=== PATIENT | female | born 1985 | race Caucasian/White ===

== ENCOUNTER 2023-02-12 16:10 | Outpatient (OUT) | payer OTHER, SELFPAY ==
--- NOTE | 2023-02-12 | XR_ITS ---
The [address] [address] Patient Name: SON HOLT MRN: [id number] date: 1985 Sex: F Assigned Patient Location: [facility] Current Patient Location: Accession/Order Number: [id number] Exam Date: 02/12/2023 16:25 Report Date: 02/13/2023 09:32 At the request of: SADIA [email or web address] Procedure: XR lumbar spine 2-3V EXAM: XR lumbar spine 2-3V HISTORY: Lumbar Strain COMPARISON: None. TECHNIQUE: 2 views FINDINGS: Satisfactory alignment. Maintained vertebral body heights. Multilevel endplate degenerative changes and disc disease of L4-S1. No acute fracture or significant subluxation. Nonobstructive bowel gas pattern. XR/XR lumbar spine 2-3V IMPRESSION: Mild degenerative change and disc disease of the lower lumbar spine as above. Electronically authenticated by: RYLEE KINGSLEY Date: 02/13/2023 09:32
== END 2023-02-12 16:11 | disposition home or self-care (01) ==
LOC: RAD 16:10
PROVIDERS: PCP Family Medicine; Visit Provider Family Medicine
DX: S39.012A Strain of muscle, fascia and tendon of lower back, initial encounter (principal); M54.16 Radiculopathy, lumbar region
CPT/HCPCS: 72100

== ENCOUNTER 2024-05-17 15:23 | Emergency (ER) | payer OTHER, SELFPAY ==
[2024-05-17 15:28] VITALS: BP 138/86; PULSE 113; TEMP 36.9; O2SAT 98; BMI 30.7
--- OUTSIDE RECORDS SUMMARY | 2024-05-17 15:28 | XMS_ITS | CCD ---
Author Organization [facility] Care Team Providers Care Information Security Director Name Role Phone DANY DEE Primary Care Unavailable RYLEE ESTRADA Consulting Unavailable MIGUEL ALLEN Admitting Unavailable MIGUEL ALLEN Attending Unavailable MIGUEL ALLEN Consulting Unavailable Geovany Jessica Consulting Unavailable Imelda Alonso Unavailable DANY DEE Referring Unavailable DANY DEE Primary Care Unavailable DANY DEE Referring Unavailable DANY DEE Primary Care Unavailable Dany Dee DO Primary Care Provider [phone] Allergies Allergy Classification Reported Allergen(s) Allergy Type Date of Onset Reaction(s) Facility (1 source) Sucralfate Drug Allergy Gastrointestinal Upset [facility] Medications Current Medications Medication Drug Class(es) Dates Sig (Normalized) Sig (Original) ciprofloxacin 3 mg/ml ophthalmic solution (1 source) Quinolone Antimicrobial Start: 05-11-2022 Ciprofloxacin HCl 0.3 % 1-2 gtts Ophthalmic every 4 hours for 5 days Apr, Active cyclobenzaprine hydrochloride 10 mg oral tablet (1 source) Muscle Relaxant Start: 02-12-2023 take 1 tablet by mouth three times daily as needed for muscle spasms cyclobenzaprine (FLEXERIL) 10 mg tablet Indications: Lumbar strain, initial encounter , Lumbar radiculopathy Take 1 tablet (10 mg total) by mouth 3 (three) times a day as needed for muscle spasms. 60 tablet 1 02/12/2023 Active dextromethorphan hydrobromide 15 mg / guaiFENesin 400 mg / pseudoephedrine hydrochloride 60 mg oral tablet (1 source) alpha-Adrenergic Agonist, Uncompetitive V-qpaarh-C-aspartat e Receptor Antagonist, Sigma-1 Agonist Start: 04-30-2024 take 4 tablets by mouth every twenty-four hours as needed Pseudoephedrine-Dm- Guaifenesin (Capmist Dm) 60-15-400 mg tablet Active 1 TAB PO EVERY 4-6 HOURS as needed for cold symptoms April 30, 2024 12:00am do not exceed 4 doses per 24 hrs fluticasone propionate 0.05 mg/actuat metered dose nasal spray (1 source) Corticosteroid Start: 04-30-2024 take 1 spray(s) nasal route twice daily Fluticasone Propionate (Flonase Allergy Relief) 50 mcg/actuation spray,suspension Active 1 SPRAY INTRANASAL Twice daily 16 April 30, 2024 12:00am administer 1 spray into each nostril ibuprofen 800 mg oral tablet (2 sources) Nonsteroidal Anti-inflammatory Drug Start: 02-12-2023 take 1 tablet by mouth every eight hours as needed for pain ibuprofen (MOTRIN) 800 mg tablet Take 1 tablet (800 mg total) by mouth every 8 (eight) hours as needed for pain. 90 tablet 1 02/12/2023 Active End: 02-12-2023 take 1 tablet by mouth every six hours as needed for pain ibuprofen (ADVIL,MOTRIN) 200 mg tablet Take 1 tablet (200 mg total) by mouth every 6 (six) hours as needed for pain. prn 0 02/12/2023 Discontinued (Dose adjustment) Completed/Discontinued Medications Medication Drug Class(es) Dates Sig (Normalized) Sig (Original) cefTRIAXone (1 source) Cephalosporin Antibacterial Start: 10-17-2018 ROCEPHIN per 250 mg Sep, 250 mg Problems Active Problems Problem Classification Problem Date Documented Da te Episodic/Chronic Abdominal pain (3 sources) Right upper quadrant pain; Translations: [RIGHT UPPER QUADRANT PAIN] Onset: 03-19-2020 Episodic Esophageal disorders (1 source) Gastro-esophageal reflux disease without esophagitis; Translations: [GERD WITHOUT ESOPHAGITIS] Onset: 03-22-2020 Chronic Inflammation; infection of eye (except that caused by tuberculosis or sexually transmitteddisease) (1 source) Unspecified acute conjunctivitis, left eye Episodic Spondylosis; intervertebral disc disorders; other back problems (2 sources) Radiculopathy, lumbar region; Translations: [Lumbar radiculopathy] Onset: 02-15-2023 02-12-2023 Episodic Sprains and strains (2 sources) Strain of muscle, fascia and tendon of lower back, initial encounter; Translations: [Low back strain] Onset: 02-15-2023 02-12-2023 Episodic Past or Other Problems Problem Classification Problem Date Documented Da te Episodic/Chronic Mood disorders (1 source) Mood disorders Onset: 02-12-2023 02-12-2023 Results Test Name Value Interpretation Reference Range Facil ity AMYLASEon 03-19-2020 Amylase [Catalytic activity/Vol] 44 U/L Normal 31-110 [facility] Comment on above: Performed By: #### H STROPN, LIPA, CMP, CHRIS #### [facility] [address] [place] [id number] Naz Ana CBC AUTO DIFFon 03-19-2020 Basophils (Bld) [#/Vol] 0.0 103/ul Normal 0.0-0.1 [facility] Comment on above: Performed By: #### C BC #### [facility] [address] [place], [place] [id number] Naz Ana Basophils/100 WBC (Bld) 0.2 % Normal 0.2-2.0 [facility] Comment on above: Performed By: #### C BC #### [facility] [address] [place] [address] Naz Ana Eosinophils (Bld) [#/Vol] 0.0 103/ul Normal 0.0-0.7 [facility] Comment on above: Performed By: #### C BC #### [facility] [address] [place], [place] [phone] Naz Ana Eosinophils/100 WBC (Bld) 0.3 % Critically low 0.9-7.0 [facility] Comment on above: Performed By: #### C BC #### [facility] [address] [place] [address] Naz Ana Erythrocyte distribution width (RBC) [Ratio] 14.1 % Normal 11.0-15.0 [facility] Comment on above: Performed By: #### C BC #### [facility] [address] [place] [address] Naz Ana Hematocrit (Bld) [Volume fraction] 42.4 % Normal 36.0-48.0 [facility] Comment on above: Performed By: #### C BC #### [facility] [address] [id number] Naz Ana Hemoglobin (Bld) [Mass/Vol] 13.7 g/dL Normal 12.0-16.0 [facility] Comment on above: Performed By: #### C BC #### [facility] [address] [id number] Naz Ana IG # 0.04 10e3/ul Critically high 0.00-0.03 [facility] Comment on above: Performed By: #### C BC #### [facility] [address] [place], [place] [phone] Naz Ana IG % 0.3 % Normal 0.0-0.5 [facility] Comment on above: Performed By: #### C BC #### [facility] [address] [place], [place] [phone] Naz Ana Lymphocytes (Bld) [#/Vol] 2.6 103/ul Normal 1.2-3.8 [facility] Comment on above: Performed By: #### C BC #### [facility] [address] [place], [place] [phone] Naz Ana Lymphocytes/100 WBC (Bld) 20.4 % Critically low 20.5-60.0 [facility] Comment on above: Performed By: #### C BC #### [facility] [address] [place], [place] [phone] Nazgeovany Parrishen MANUAL DIFF REQ NO Normal [facility] Comment on above: Performed By: #### C BC #### [facility] [address] [place], [place] [phone] Naz Ana MCH (RBC) [Entitic mass] 30.2 pg Normal 26.7-34.0 [facility] Comment on above: Performed By: #### C BC #### [facility] [address] [place], [place] [phone] Naz Ana MCHC (RBC) [Mass/Vol] 32.3 g/dL Normal 29.9-35.2 [facility] Comment on above: Performed By: #### C BC #### [facility] [address], [place] [address] Naz Ana MCV (RBC) [Entitic vol] 93.4 fL Normal 81.0-99.0 [facility] Comment on above: Performed By: #### C BC #### [facility] [address], [place] [address] Naz Ana Monocytes (Bld) [#/Vol] 0.6 103/ul Normal 0.3-0.8 [facility] Comment on above: Performed By: #### C BC #### [facility] [address], [place] [address] Naz Ana Monocytes/100 WBC (Bld) 5.0 % Normal 1.7-12.0 [facility] Comment on above: Performed By: #### C BC #### [facility] [address], [place] [address] Naz Ana Neutrophils (Bld) [#/Vol] 9.2 103/ul Critically high 1.4-6.5 [facility] Comment on above: Performed By: #### C BC #### [facility] [address] [place] [address] Naz Ana Neutrophils/100 WBC (Bld) 73.8 % Normal 43.0-75.0 [facility] Comment on above: Performed By: #### C BC #### [facility] [address] [place] [phone] Naz Ana Platelet mean volume (Bld) [Entitic vol] 10.6 fL Normal 9.5-13.5 [facility] Comment on above: Performed By: #### C BC #### [facility] [address], [place] [address] Naz Ana Platelets (Bld) [#/Vol] 323 103/ul Normal 150-450 [facility] Comment on above: Performed By: #### C BC #### [facility] [address], [place] [address] Naz Ana RBC (Bld) [#/Vol] 4.54 106/ul Normal 4.20-5.40 [facility] Comment on above: Performed By: #### C BC #### [facility] [address] [place] [address] Naz Perez WBC (Bld) [#/Vol] 12.5 103/ul Critically high 4.0-11.0 [facility] Comment on above: Performed By: #### C BC #### [facility] [address] [place] [address] Naz Ana CULTURE URINEon 03-19-2020 CULTURE URINE Culture Observations: Greater than 4 organisms present. None predominant. Culture Observations: Please resubmit clean catch midstream urine if clinically indicated. Normal [facility] Comment on above: Performed By: #### U RCX #### [facility] [address] [place] [address] Nazgeovany Perez ER URINE PROFILEon Bilirubin [Mass/Vol] Negative Normal NEGATIVE [facility] Comment on above: Performed By: #### JODIE HARRINGTON #### [facility] [address] [place] [address] Naz [place] BLOOD Negative Normal NEGATIVE [facility] Comment on above: Performed By: #### JODIE HARRINGTON #### [facility] [address] [place] [address] Nazgeovany Perez Clarity (U) CLEAR Normal CLEAR [facility] Comment on above: Performed By: #### JODIE HARRINGTON #### [facility] [address] [place] [address] Naz Ana Color (U) LT. YELLOW Normal YELLOW [facility] Comment on above: Performed By: #### CHRISTIAN HARRINGTONRO #### [facility] [address] [place], [place] [phone] Naz Ana ERUAHD A micrscopic examination will be performed if indicated. Normal [facility] Comment on above: Performed By: #### CHRISTIAN HARRINGTONRO #### [facility] [address] [place] [address] Naz Ana Glucose [Mass/Vol] Negative Normal NEGATIVE [facility] Comment on above: Performed By: #### Eleazar MIR UMINDRARO #### [facility] [address] [id number] Naz Ana Ketones Ql (U) 15 mg/dl Abnormal NEGATIVE [facility] Comment on above: Performed By: #### Eleazar MIR UMINDRARO #### [facility] [address] [id number] Naz Ana Nitrite Ql (U) Negative Normal NEGATIVE [facility] Comment on above: Performed By: #### Eleazar MIR UMICRO #### [facility] [address] [place] [address] Naz Ana pH (Bld) 6.0 Normal 5-9 [facility] Comment on above: Performed By: #### CHRISTIAN HARRINGTONRO #### [facility] [address] [place] [address] Naz Ana Protein (U) [Mass/Vol] Negative Normal NEGATIVE/ TRACE [facility] Comment on above: Performed By: #### CHRISTIAN HARRINGTONRO #### [facility] [address] [place] [address] Naz Ana SPEC GRAVITY >=1.030 Abnormal 1.005-<=1.025 [facility] Comment on above: Performed By: #### CHRISTIAN HARRINGTONRO #### [facility] [address] [place], [place] [phone] Naz Ana UR MICRO IND INDICATED Normal [facility] Comment on above: Performed By: #### Eleazar MIR UMICRO #### [facility] [address] [place] [address] Naz Ana Urobilinogen Qn (U) 0.2 EU/dl Normal 0.2 - 1.0 [facility] Comment on above: Performed By: #### Eleazar MIR UMINDRARO #### [facility] [address] [place], [place] [phone] Naz Ana WBC (Bld) [#/Vol] SMALL Abnormal NEGATIVE [facility] Comment on above: Performed By: #### JODIE HARRINGTON #### [facility] [address] [id number] Nazgeovany Perez LIPASEon 03-19-2020 Lipase [Catalytic activity/Vol] 122.0 U/L Normal 23.0-300.0 [facility] Comment on above: Performed By: #### H STROPN, LIPA, CMP, CHRIS #### [facility] [address] [id number] Naz Ana URon 03-19-2020 , QUAL Negative Normal NEGATIVE [facility] Comment on above: Performed By: #### P REGU #### [facility] [address] [id number] Nazgeovany Perez PROF 14(COMP METB)on 021 Albumin [Mass/Vol] 4.0 g/dL Normal 3.5-5.0 [facility] Comment on above: Performed By: #### H STROPN, LIPA, CMP, CHRIS #### [facility] [address] [address] Naz Ana Albumin/Globulin [Mass ratio] 1.0 {ratio} Normal [facility] Comment on above: Performed By: #### H STROPN, LIPA, CMP, CHRIS #### [facility] [address] [place] [address] Naz Ana ALP [Catalytic activity/Vol] 68 U/L Normal 38-126 [facility] Comment on above: Performed By: #### H STROPN, LIPA, CMP, CHRIS #### [facility] [address] [address] Naz Ana ALT [Catalytic activity/Vol] 21 U/L Normal 9-52 [facility] Comment on above: Performed By: #### H STROPN, LIPA, CMP, CHRIS #### [facility] [address] [address] Naz Ana Anion gap [Moles/Vol] 13.7 mmol/L Normal [facility] Comment on above: Performed By: #### H STROPN, LIPA, CMP, CHRIS #### [facility] [address] [address] Naz Ana AST [Catalytic activity/Vol] 9 U/L Critically low 14-36 [facility] Comment on above: Performed By: #### H STROPN, LIPA, CMP, CHRIS #### [facility] [address] [address] Naz Ana Bilirubin Ql (U) 0.4 mg/dL Normal 0.2-1.3 [facility] Comment on above: Performed By: #### H STROPN, LIPA, CMP, CHRIS #### [facility] [address] [place] [address] Naz Ana Calcium [Mass/Vol] 9.0 mg/dL Normal 8.4-10.2 [facility] Comment on above: Performed By: #### H STROPN, LIPA, CMP, CHRIS #### [facility] [address] [place] [address] Naz Ana Chloride [Moles/Vol] 103 mmol/L Normal 98-107 [facility] Comment on above: Performed By: #### H STROPN, LIPA, CMP, CHRIS #### [facility] [address] [place] [address] Naz Ana CO2 [Moles/Vol] 25.7 mmol/L Normal 22.0-30.0 [facility] Comment on above: Performed By: #### H STROPN, LIPA, CMP, CHRIS #### [facility] [address] [place] [address] Naz Ana Creatinine [Mass/Vol] 0.93 mg/dL Normal 0.52-1.04 [facility] Comment on above: Performed By: #### H STROPN, LIPA, CMP, CHRIS #### [facility] [address] [place] [address] Naz Ana EGFR-AF SWISS >60 Normal >=60 [facility] Comment on above: Performed By: #### H STROPN, LIPA, CMP, CHRIS #### [facility] [address] [address] Naz Ana EGFR-NON AF SWISS >60 Normal >=60 [facility] Comment on above: Performed By: #### H STROPN, LIPA, CMP, CHRIS #### [facility] [address] [address] Naz Ana Globulin (S) [Mass/Vol] 3.9 g/dL Normal [facility] Comment on above: Performed By: #### H STROPN, LIPA, CMP, CHRIS #### [facility] [address] [address] Naz Ana Glucose [Mass/Vol] 191 mg/dL Critically high 74-106 [facility] Comment on above: Performed By: #### H STROPN, LIPA, CMP, CHRIS #### [facility] [address] [address] Naz Ana Potassium [Moles/Vol] 3.4 mmol/L Normal 3.4-5.0 [facility] Comment on above: Performed By: #### H STROPN, LIPA, CMP, CHRIS #### [facility] [address] [place] [address] Naz Ana Protein [Mass/Vol] 7.9 g/dL Normal 6.1-8.2 [facility] Comment on above: Performed By: #### H STROPN, LIPA, CMP, CHRIS #### [facility] [address] [place] [address] Naz Ana Sodium [Moles/Vol] 139 mmol/L Normal 137-145 [facility] Comment on above: Performed By: #### H STROPN, LIPA, CMP, CHRIS #### [facility] [address] [place] [address] Naz Ana Urea nitrogen [Mass/Vol] 12.0 mg/dL Normal 7.0-17.0 [facility] Comment on above: Performed By: #### H STROPN, LIPA, CMP, CHRIS #### [facility] [address] [place] [address] Naz Ana Urea nitrogen/Creatinine [Mass ratio] 12.9 mg/mg Normal [facility] Comment on above: Performed By: #### H STROPN, LIPA, CMP, CHRIS #### [facility] [address] [place] [address] Naz Ana TROPONIN, HIGH SENSITIVITYon 03-19-2020 HSTROP <4.0 Normal 4.0-35.5 [facility] Comment on above: Result Comment: CUT- OFF POINTS HAVE BEEN ESTABLISHED BASED ON THE FOURTH UNIVERSAL DEFINITIONS OF MYOCARDIAL INFARCTION. THE UPPER REFERENCE LIMIT (URL) OF TROPONIN, DEFINED THE 99TH PERCENTILE OF cTnI DISTRIBUTION IN A REFERENCE POPULATION, HAS BEEN CONFIRMED THE DECISION THRESHOLD FOR AK DIAGNOSIS. Performed By: #### H STROPN, LIPA, CMP, CHRIS #### [facility] [address] [place], [place] [phone] Naz Ana URINE MICROSCOPIC ONLYon Bacteria LM.HPF (Urine sed) [#/Area] TRACE Abnormal NONE SEEN The [facility] Comment on above: Performed By: #### CHRISTIAN HARRINGTONRO #### [facility] [address] [place] [address] Naz Ana CAST NONE SEEN Normal NONE SEEN [facility] Comment on above: Performed By: #### Eleazar MIR UMICRO #### [facility] [address] [place] [address] Naz Ana Crystals LM Nom (Urine sed) NONE SEEN Normal NONE SEEN [facility] Comment on above: Performed By: #### Eleazar MIR UMICRO #### [facility] [address] [place] [address] Naz Ana CULTURE INDICATED Normal [facility] Comment on above: Performed By: #### CHRISTIAN HARRINGTONRO #### [facility] [address] [place] [address] Naz Ana Epithelial cells LM.HPF (Urine sed) [#/Area] FEW Abnormal NONE SEEN /RARE [facility] Comment on above: Performed By: #### CHRISTIAN HARRINGTONRO #### [facility] [address] [place] [address] Naz Ana MUCOUS SMALL Abnormal NONE SEEN [facility] Comment on above: Performed By: #### CHRISTIAN HARRINGTONRO #### [facility] [address] [place] [address] Naz Perez RBC (U) [#/Vol] 2-5 Abnormal 0-2 [facility] Comment on above: Performed By: #### JODIE HARRINGTON #### [facility] [address], [place] [address] Naz Perez WBC (Bld) [#/Vol] 2-5 Abnormal NONE SEEN The [facility] Comment on above: Performed By: #### JODIE HARRINGTON #### [facility] [address], [place] [address] Naz Perez XR ABD FLAT UP_PA [place] 03-19 XR ABD FLAT UP_PA CH EXAM: XR ABD FLAT UP_PA CH HISTORY: The patient is a 34-year-old female with five-day history of right upper quadrant pain. COMPARISON: Chest radiograph from 02/19/2019. FINDINGS: The lungs are well-inflated and clear with no confluent airspace infiltrates, pleural effusions, or pneumothoraces. The heart and mediastinum are within normal limits. The trachea is midline. Air and fecal material are seen throughout the nondistended colon and rectum. There are no abnormally dilated loops of large or small bowel to suggest obstruction. No free air is seen. No abnormal calcifications are identified. IMPRESSION: 1. Nonobstructive bowel gas pattern. 2. The lungs are clear. Electronically authenticated by: GEOVANY JESSICA Date: 2020-03-19 19:27 Normal [facility] Vital Signs Date Time Vital Sign Value Performing Clinician Facility 04-30-2024 15:040 Body height 167.64 cm [facility] 04-30-2024 15:040 Body mass index (BMI) [Ratio] 35 kg/m2 [facility] 04-30-2024 15:040 Body temperature 97.5 [degF] [facility] 04-30-2024 15: Body weight 98.42 kg [facility] 04-30-2024 15:0400 Heart rate 84 /min [facility] 04-30-2024 15:040 Respiratory rate 14 /min [facility] 04-30-2024 15:29-0400 SaO2% (BldA) [Mass fraction] 98 % [facility] 02-12-2023 15:21-0500 Body height 167.6 cm Dany Furlong DO Work Phone: [employer] 02-12-2023 15:21-0500 Body mass index (BMI) [Ratio] 34.35 kg/m2 Dany Furlong DO Work Phone: [employer] 02-12-2023 15:21-0500 Body temperature 97.9 [degF] Dany Furlong DO Work Phone: [employer] 02-12-2023 15:21-0500 Body weight 96.53 kg Dany Furlong DO Work Phone: [employer] 02-12-2023 15:21-0500 Diastolic blood pressure 74 mm[Hg] [facility]long DO [facility] 02-12-2023 15:21-0500 Heart rate 100 /min Dany luma-idlong DO Work Phone: [employer] 02-12-2023 15:21-0500 SaO2% (BldA) [Mass fraction] 100 % Dany Furlong DO Work Phone: [employer] 02-12-2023 15:21-0500 Systolic blood pressure 132 mm[Hg] Dany Furlong DO Work Phone: [employer] 05-11-2022 10:20-0400 Body height 165.1 cm Imelda Alonso Other [employer] Other 05-11-2022 10:20-0400 Body mass index (BMI) [Ratio] 34.11 kg/m2 Imelda Alonso Other [employer] Other 05-11-2022 10:20-0400 Body temperature 98.9 [degF] Imelda Alonso Other [employer] Other 05-11-2022 10:20-0400 Body weight 92.99 kg Imelda Alonso Other [employer] Other 05-11-2022 10:20-0400 Respiratory rate 18 /min Imelda Alonso Other [employer] Other 05-11-2022 10:20-0400 SaO2% (BldA) [Mass fraction] 98 % Imelda Alonso Other [employer] Other Encounters Encounter Date Encounter Type Care Provider Facility Start: 04-30-2024 End: 04-30-2024 ambulatory [facility] Work Phone: Start: 04-30-2024 End: 04-30-2024 Patient encounter procedure [facility] Carlos Manuel Work Phone: Start: 03-21-2023 End: 04-19-2023 ambulatory [facility] Start: 02-15-2023 End: 03-21-2023 ambulatory [facility] Start: 02-12-2023 End: 02-12-2023 Office outpatient visit 15 minutes [facility] DO Work Phone: [facility] - [facility] Comment on above: Lumbar strain, initi al encounter (Primary Dx); Lumbar radiculopathy Start: 05-11-2022 End: 05-11-2022 ambulatory Imelda Alonso Other [employer] Other Start: 05-11-2022 Office outpatient vi sit 15 minutes Imelda Alonso [facility] Carlos Manuel Start: 03-19-2020 End: 03-19-2020 Patient encounter procedure DANY PRASHANTHCASTRO Facility: Procedures Date Procedure Procedure Detail Performing Clinician Start: 02-12-2023 Adult depression screening assessment Dany Furlong DO Work Phone: Plan of Treatment Date Care Activity Detail Author Start: 02-13-2024 Adult BMI Screening Adult BMI Screen ing [facility] Start: 02-13-2024 Depression Screening Depression Scre ening [facility] Start: 02-13-2024 Tobacco Screening Tobacco Screening [facility] Start: 02-12-2023 End: 02-13-2024 XR Lumbar spine 2 or 3 Views X-ray spine lumbar 2 or 3 views Imaging Routine Lumbar strain, initial encounter Lumbar radiculopathy Expected: 02/12/2023, Expires: 02/13/2024 [facility] Work Phone: Comment on above: Expected: 02/12/2023 , Expires: 02/13/2024 Start: 10-19-2022 Influenza vaccination Influenza Vacc ine [facility] Start: 2006 Screening for malign ant neoplasm of cervix Pap Smear [facility] Start: 2004 DTaP,Tdap and Td Vaccines (1 - Tdap) DTaP,Tdap and Td Vaccines (1 - Tdap) [facility] Start: 09-11-2003 Adult BMI Follow Up Plan Adult BMI Follow Up Plan [facility] Influenza virus A an d B RNA and SARS-CoV-2 (COVID-19) N gene panel - Respiratory specimen by RODNEY with probe detection [facility] Payers Date Payer Category Payer Medicaid [id number] 2023 Medicaid [id number] O [id number] 2023-Present [phone] [address] [place] [address] [id number] 1985 Unknown [id number] 1985 Unknown [id number] 1985 Unknown [id number] 1959 Unknown [id number] Private Health Insurance [facility] [employer] [id number] Social History Date Type Detail Facility Unknown if ever smoked [facility] Appear Here Other Start: 07-30-2018 End: 02-12-2023 Sex Assigned At [facility] [employer] Other Start: 02-12-2023 End: 04-30-2024 Tobacco smoking status NHIS Never smoked tobacco [facility] Start: 02-12-2023 Tobacco use and exposure Smokeless tobacco non-user [facility] Start: 02-12-2023 Alcohol intake Current drinke r of alcohol (finding) [facility] Start: 07-30-2018 End: 02-12-2023 History of Social function [facility] Adolescent depressio n screening assessment 0 [facility] Start: 02-12-2023 Alcohol Comment sometime [facility] Start: 1985 Sex Assigned At Not on file P [facility] Start: 04-30-2024 Sex Female (finding) [facility] Start: 1985 Sex Assigned At Female F [facility] History of Present illness Narrative 02-12-2023 Dany Dee, DO - 02/12/2023 3:20 PM EST Note Date & Type Note Facility 02-12-2023 History of Present illness Narrative Images from the original note were not included. Subjective Patient ID: Sharee Arredondo is a 37 y.o. female. Sharee presents for back and leg pain. It started in November after she tried lifting 40# case of water at a store. She bent at the waist and had a sudden onset of back pain. Pain went down both legs and did that for quite some time. Now it is pain going mainly down her left leg. She does not have any bowel or bladder symptoms. She has been using [id number] ibuprofen with mild relief. Pain does keep her awake at night. It is better than what it was but she is still having problems. Pain This is a new problem. The current episode started more than 1 month ago. The problem occurs constantly. The problem has been gradually improving. Pertinent negatives include no numbness or weakness. The symptoms are aggravated by bending, standing and walking. She has tried NSAIDs, ice and heat for the symptoms. The treatment provided mild relief. The following portions of the patient's history were reviewed and updated as appropriate: allergies, current medications, past family history, past medical history, past social history, past surgical history, problem list, and medication reconciliation was completed including current medication and post discharge medication. Review of Systems Constitutional: Negative. Gastrointestinal: Negative. Genitourinary: Negative. Musculoskeletal: Positive for back pain and gait problem. Neurological: Negative for weakness and numbness. Objective Physical Exam Constitutional: Appearance: She is obese. HENT: Head: Normocephalic. Cardiovascular: Pulses: Normal pulses. Pulmonary: Effort: Pulmonary effort is normal. Musculoskeletal: Lumbar back: No swelling, edema, deformity, signs of trauma, lacerations, spasms, tenderness or bony tenderness. Decreased range of motion. Positive left straight leg raise test. Negative right straight leg raise test. No scoliosis. Back: Comments: OMT done to the lumbar spine with 2 segmental subluxations corrected with HVLA technique. Muscle energy technique done to lumbosacral spine as well as soft tissue technique. Leg lengths were equal Neurological: Mental Status: She is alert. Cranial Nerves: Cranial nerves 2-12 are intact. Gait: Gait abnormal (antalgic). Deep Tendon Reflexes: Reflex Scores: Patellar reflexes are 2+ on the right side and 2+ on the left side. Achilles reflexes are 2+ on the right side and 0 on the left side. Psychiatric: Attention and Perception: Attention normal. Mood and Affect: Mood and affect normal. Speech: Speech normal. Behavior: Behavior normal. Behavior is cooperative. Thought Content: Thought content normal. Judgment: Judgment normal. Assessment/Plan Sharee was seen today for pain. Diagnoses and all orders for this visit: Lumbar strain, initial encounter - X-ray spine lumbar 2 or 3 views; Future - cyclobenzaprine (FLEXERIL) 10 mg tablet; Take 1 tablet (10 mg total) by mouth 3 (three) times a day as needed for muscle spasms. - Ambulatory referral to Physical Therapy ([facility]); Future Patient with lumbar strain but continues to have pain 2 months later. Will check an x-ray and start physical therapy. Also going to add Flexeril 10 mg 3 times a day as needed for muscle spasms. She is having trouble sleeping and this should help her sleep. Also give her prescription strength ibuprofen 800 mg every 8 hours as needed for pain. Lumbar radiculopathy - X-ray spine lumbar 2 or 3 views; Future - cyclobenzaprine (FLEXERIL) 10 mg tablet; Take 1 tablet (10 mg total) by mouth 3 (three) times a day as needed for muscle spasms. - Ambulatory referral to Physical Therapy (Non[facility]); Future May need to have an MRI done. Other orders - ibuprofen (MOTRIN) 800 mg tablet; Take 1 tablet (800 mg total) by mouth every 8 (eight) hours as needed for pain. documented in this encounter [facility] Evaluation note 05-11-2022 Note Date & Type Note Facility 05-11-2022 Evaluation note Encounter Date Diagnosis Assessment Notes Apr, Acute bacterial conjunctivitis of left eye (ICD-10 - H10.32) Discussed diagnosis with patient. Advised to use eye drops as prescribed, discussed proper administration. Contagious until after 24 hours on antibiotic eye drops. Advised good hand hygiene and infection control, wash linens and bedding, do not touch eye directly with eye drop bottle, wipe off bottle after every use, do not share eye drop bottles. Apply cool compress to eye several times a day, clean eye with warm, most cloth from inner to outer canthus. Avoid eye makeup until sx resolve, discard all eye makeup that was used at time of infection. Eye symptoms should improve in 2-3 days with treatment, if no improvement follow up with PCP or UC. Immediate eval if symptoms worsen, eye pain, vision changes, redness and swelling occur around the eye, headache, fever, N/V or any other concerning symptoms. Patient verbalizes understanding and is agreeable to treatment plan. [employer] Other Evaluation note Note Date & Type Note Facility Evaluation note Diagnosis Lumbar strain, initial encounter- Primary Lumbar radiculopathy Thoracic or lumbosacral neuritis or radiculitis, unspecified documented in this encounter [facility] Evaluation note Note Date & Type Note Facility Evaluation note No assessment information [facility] Work Phone: History general Narrative - Reported Note Date & Type Note Facility History general Narrative - Reported Type Surgical History wisdom teeth extract [employer] Other Instructions Note Date & Type Note Facility Instructions Not on filedocumented in this en counter [facility] Summary Purpose Family History Relationship Condition Age at Onset Recorded Date/T loyd father Family history of mental disorder Unknown Diabetes mellitus Unknown Hypertension Unknown Advance Directives Advance Directive Response Recorded Date/ Time Advance Directives No October 2:19pm Reason for Referral Specialty Diagnoses / Procedures Referred By Contac t Referred To Contact Rehabilitation Diagnoses Lumbar strain, initial encounter Lumbar radiculopathy Dany Dee DO [address], [facility] [place] [address] Referral ID Status Reason Start Date Expiration Date Visits Requested Visits Authorized [id number] Pending Review Specialty Services Required 3 02/12/2024 1 1 Chief Complaint and Reason for Visit Chief Complaint Admit Date Earache April 30, 2024 3:2 7pm Additional Source Comments INFORMATION SOURCE (unrecogn ized section and content) DATE CREATED AUTHOR 03/22/2020 [facility] DATE CREATED AUTHOR AUTHOR'S ORGANIZ ATION 04/21/2023 [facility] REASON FOR VISIT (unrecogniz ed section and content) Reason Comments Pain Lower leg and ankle pain Care Teams (unrecognized sec tion and content) Information Security Director Relationship Specialty Start Date End Date Dany Dee DO [address], [facility] [place] [address] PCP - General Family Medicine 10/09/22 Team Status: Active Member Role Status Dates Dany Dee DO Primary Care Provider Active Team Status: Inactive Member Role Status Dates Dany BurlesonDO patricio Primary Care Provider Active Start: April 30, 2024 End: April 30, 2024 Imelda lAonso APRN Attending Provider Active Start: April 30, 2024 End: April 30, 2024 Goals (unrecognized section and content) Goals may be documented in a n alternate section FOR RECORDS PERTAINING TO PATIENTS WHO ARE OR HAVE BEEN ENROLLED IN A CHEMICAL DEPENDENCY/SUBSTANCEABUSE PROGRAM, SOME INFORMATION MAY BE OMITTED. This clinical summary was aggregated from multiple sources. Caution should be exercised in using it in the provision of clinical care. This summary normalizes information from multiple sources, and as a consequence, information in this document may materially change the coding, format and clinical context of patient data. In addition, data may be omitted in some cases. CLINICAL DECISIONS SHOULD BE BASED ON THE PRIMARY CLINICAL RECORDS. [facility] [employer] provides no warranty or guarantee of the accuracy or completeness of information in this document.
--- NOTE | 2024-05-17 15:44 | ED.GENADUL1 ---
HPI HPI - General Adult General Chief complaint: Ear Stated complaint: EAR PAIN Time Seen by Provider: 05/17/24 15:25 Source: patient Mode of arrival: walk-in Limitations: no limitations History of Present Illness HPI narrative: 38-year-old female presents for left ear pain. It has been alternating between her left ear and her right ear but today it is her left ear. No drainage or trauma. 2 weeks ago she had influenza. She has not had a fever or cough or shortness of breath. Related Data Previous Rx's ?Medication ?Instructions ?Recorded loratadine 5 mg-pseudoephedrine ER 1 tab PO Q12H PRN nasal congestion 05/17/24 120 mg tablet,extended #20 tabs release,12hr (Claritin-D 12 Hour) Allergies Allergy/AdvReac Type Severity Reaction Status Date / Time sucralfate AdvReac Palpitation Verified 05/17/24 15:36 s Opioid HPI Opioid Management Most Recent Opioid Data: No Data to Display Review of Systems ROS Narrative A ten point review of systems is negative except as noted above. PFSH PFSH Social History Little interest or pleasure in doing things: not at all Feeling down, depressed, or hopeless: not at all Exam Narrative Exam Narrative: Nurses note and vital signs reviewed and patient is not hypoxic. General: The patient appears well and in no apparent distress. Patient is resting comfortably on cart. Skin: Warm, dry, no pallor noted. There is no rash noted. Head: Normocephalic, atraumatic Eye: Normal conjunctiva, no drainage Ears, Nose, Mouth, and Throat: oral mucosa is moist. Nares patent. Both TMs and both external canals are normal in appearance. There is no excess cerumen and no erythema to the TM. Cardiovascular: Regular Rate and Rhythm Respiratory: Patient is in no distress, no accessory muscle use Back: non-tender GI: Soft and nontender Musculoskeletal: The patient has no evidence of calf tenderness, no pitting edema, symmetrical pulses noted bilaterally Neurological: A&O, normal speech Psychiatric: Cooperative Constitutional Vital Signs, click to edit/add: Last Vital Signs Temp 98.5 F 05/17/24 15:28 Pulse 113 H 05/17/24 15:28 Resp 14 05/17/24 15:28 BP 138/86 05/17/24 15:28 Pulse Ox 98 05/17/24 15:28 Course Vital Signs Vital signs: Vital Signs Temperature 98.5 F 05/17/24 15:28 Pulse Rate 113 H 05/17/24 15:28 Respiratory Rate 14 05/17/24 15:28 Blood Pressure 138/86 05/17/24 15:28 Pulse Oximetry 98 05/17/24 15:28 Temperature 98.5 F 05/17/24 15:28 Pulse Rate 113 H 05/17/24 15:28 Respiratory Rate 14 05/17/24 15:28 Blood Pressure 138/86 05/17/24 15:28 Pulse Oximetry 98 05/17/24 15:28 Medical Decision Making MDM Narrative Medical decision making narrative: She does not have otitis media or otitis externa. Should be placed on Claritin-D. She has a normal exam. Treatment diagnosis and follow-up were discussed with the patient. Differential Diagnosis Differential Diagnosis: Otitis media, otitis externa, foreign body, cerumen impaction Discharge Plan Discharge Chief Complaint: Ear Clinical Impression: Otalgia Patient Disposition: Home, Self-Care Time of Disposition Decision: 15:43 Condition: Good Mode of Transportation: Private Vehicle Prescriptions / Home Meds: New Claritin-D 12 Hour 5-120 mg tablet extended release 12 hr 1 tab PO Q12H PRN (Reason: nasal congestion) Qty: 20 0RF Print Language: Uruguayan Instructions: Earache (ED) Referrals: SADIA LIPSCOMB [Primary Care Provider] - 1 week
== END 2024-05-17 16:40 | disposition home or self-care (01) ==
PROVIDERS: Emergency Provider Emergency Medicine; PCP Family Medicine
DX: H92.02 Otalgia, left ear (principal)
CPT/HCPCS: 99283